=== PATIENT | female | born 2000 | race African-American/Black ===

== ENCOUNTER 2021-04-05 16:29 | Inpatient (IN) ==
[2021-04-05 17:49] LABS: ABS Lymphocytes 1.9 10^3/ul (1.0-4.8); ABS Monocytes 0.7 10^3/ul (0-0.8); ABS Neutrophils 5.7 10^3/ul (1.5-7.7); Eosinophil % 0.1 %; Hematocrit 42 % (35-47); Hemoglobin 14.5 g/dL (12.0-16.0); Lymphocyte % 22.5 %; Mean Corpuscular HGB Conc 35 g/dL (31-36); Mean Corpuscular Hemoglobin 30 pg (27-31); Mean Corpuscular Volume 86 fL (80-97); Mean Platelet Volume 7.4 fL (7.4-10.4); Nucleated Red Blood Cells % 0.1; Platelet Count 439 10^3/uL (150-450); Red Blood Count 4.85 10^6 /uL (3.70-4.87); Red Cell Distribution Width 13 % (10-15); White Blood Count 8.3 10^3/uL (3.5-10.8)
[2021-04-05 18:06] LABS: ALT 12 U/L (7-52); AST 20 U/L (13-39); Albumin/Globulin Ratio 1.5 (1-3); Alkaline Phosphatase 96 U/L (35-149); Anion Gap 11 mmol/L (2-11); Blood Urea Nitrogen 5 mg/dL (6-24); CO2 Carbon Dioxide 24 mmol/L (22-32); Calcium 9.9 mg/dL (8.6-10.3); Chloride 101 mmol/L (101-111); Globulin 3.4 g/dL (2-4); Glucose 90 mg/dL (70-100); Potassium 3.7 mmol/L (3.5-5.0); Sodium 136 mmol/L (135-145); Total Protein 8.4 g/dL (6.4-8.9); eGFR CKD-EPI 129.5 (>60)
[2021-04-05 18:12] LABS: HCG Pregnancy < 0.60 mIU/mL
[2021-04-05 18:15] LABS: Acetaminophen < 15 mcg/mL; Alcohol, S < 13 mg/dL (<13); Salicylate < 2.50 mg/dL (<30)
[2021-04-05 18:30] LABS: TSH Ultra Thyroid Stim Horm 0.59 mcIU/mL (0.34-5.60)
[2021-04-05 19:28] LABS: Urine Appearance Clear; Urine Bilirubin Negative (Negative); Urine Blood Negative (Negative); Urine Color Straw; Urine Glucose Negative (Negative); Urine Ketones 1+ (Negative); Urine Nitrite Negative (Negative); Urine Protein Negative (Negative); Urine Specific Gravity 1.005 (1.002-1.030); Urine Urobilinogen Negative (Negative)
[2021-04-05 21:12] LABS: Urine Benzodiazepine Screen None Detected (None Detect); Urine Cannabinoids Screen None Detected (None Detect); Urine Opiates Screen None Detected (None Detect)
[2021-04-06] MEDS: Vitamin THERAPEUTIC TAB PO SCH (09:28)
[2021-04-06] MEDS ORDERED: diPHENhydraMINE 25 mg TAB ONE (12:50)
[2021-04-07] MEDS: Vitamin THERAPEUTIC TAB PO SCH (08:07)
[2021-04-08] MEDS: Vitamin THERAPEUTIC TAB PO SCH (08:00)
[2021-04-08] MEDS ORDERED: Benzocaine/Menthol LOZ ONE (22:59)
[2021-04-09] MEDS: Vitamin THERAPEUTIC TAB PO SCH (10:05)
[2021-04-09] MEDS: Al Hydrox/Mg Hydrox/Simet LIQ 30 ML UDC PO PRN (13:16)
[2021-04-09] MEDS: Benzocaine/Menthol LOZ PO PRN (20:13)
[2021-04-10] MEDS: Vitamin THERAPEUTIC TAB PO SCH (07:11)
[2021-04-10] MEDS: Benzocaine/Menthol LOZ PO PRN (09:53)
[2021-04-10] MEDS: Al Hydrox/Mg Hydrox/Simet LIQ 30 ML UDC PO PRN (20:01)
[2021-04-11] MEDS: Vitamin THERAPEUTIC TAB PO SCH (09:17)
[2021-04-11] MEDS: Al Hydrox/Mg Hydrox/Simet LIQ 30 ML UDC PO PRN (19:25)
[2021-04-12] MEDS: Vitamin THERAPEUTIC TAB PO SCH (09:47)
[2021-04-12] MEDS: Benzocaine/Menthol LOZ PO PRN (14:50)
[2021-04-13] MEDS: Vitamin THERAPEUTIC TAB PO SCH (10:03)
[2021-04-13 18:32] VITALS: BP 120/69
[2021-04-13] MEDS: Benzocaine/Menthol LOZ PO PRN (22:23)
[2021-04-14] MEDS ORDERED: Lithium Carbonate ER 450mg TAB PO SCH (09:00)
[2021-04-14] MEDS: Vitamin THERAPEUTIC TAB PO SCH (09:33)
== END 2021-04-14 13:30 | disposition home or self-care (01) | DRG 885 ==
LOC: ED 16:29 → BSU 04-06 01:20
PROVIDERS: ADMIT Psychiatry & Neurology Psychiatry; ATTEND Psychiatry & Neurology Psychiatry

== ENCOUNTER 2021-05-09 13:34 | Inpatient (IN) ==
[2021-05-09] MEDS ORDERED: Al Hydrox/Mg Hydrox/Simet LIQ 30 ML UDC PO PRN (22:00)
[2021-05-10] MEDS: Vitamin THERAPEUTIC TAB PO SCH ×2 (08:27→10:30)
[2021-05-11] MEDS: Vitamin THERAPEUTIC TAB PO SCH (10:03)
[2021-05-11] MEDS: Benzocaine/Menthol LOZ PO PRN (19:45)
[2021-05-12 07:40] LABS: HDL Cholesterol 40.9 mg/dL
[2021-05-12] MEDS: Vitamin THERAPEUTIC TAB PO SCH (15:25)
[2021-05-12] MEDS: CMCS:Lactase Enzyme (NF) 3,000 UNIT TAB PO PRN (17:24)
[2021-05-12] MEDS: Benzocaine/Menthol LOZ PO PRN (17:24)
[2021-05-13] MEDS: Albuterol HFA INHALER 8 gm MDI INH PRN ×2 (01:02→20:01)
[2021-05-13] MEDS: Benzocaine/Menthol LOZ PO PRN ×2 (09:33→14:56)
[2021-05-13] MEDS: Vitamin THERAPEUTIC TAB PO SCH (09:53)
[2021-05-13] MEDS: CMCS:Lactase Enzyme (NF) 3,000 UNIT TAB PO PRN (12:48)
[2021-05-14] MEDS: Benzocaine/Menthol LOZ PO PRN (08:51)
[2021-05-14] MEDS: Vitamin THERAPEUTIC TAB PO SCH (08:51)
[2021-05-15] MEDS: Benzocaine/Menthol LOZ PO PRN (09:14)
[2021-05-15] MEDS: Vitamin THERAPEUTIC TAB PO SCH (09:14)
[2021-05-16] MEDS: Vitamin THERAPEUTIC TAB PO SCH (09:07)
[2021-05-17] MEDS: Vitamin THERAPEUTIC TAB PO SCH (08:35)
[2021-05-18] MEDS: Vitamin THERAPEUTIC TAB PO SCH (09:22)
[2021-05-18 20:25] VITALS: BP 124/71
[2021-05-19] MEDS: Vitamin THERAPEUTIC TAB PO SCH (09:47)
== END 2021-05-19 17:03 | disposition home or self-care (01) | DRG 885 ==
LOC: ED 13:34 → BSU 21:35
PROVIDERS: ADMIT Psychiatry & Neurology Psychiatry; ATTEND Psychiatry & Neurology Psychiatry

== ENCOUNTER 2023-02-22 23:11 | Inpatient (IN) ==
[2023-02-23] MEDS ORDERED: Ondansetron 4 mg VIAL 2 MG/ML 2 ml VIAL IV ONE (01:04)
[2023-02-23 01:44] LABS: ABS Basophils 0.1 10^3/uL (0.0-0.1); ABS Lymphocytes 1.5 10^3/uL (1.0-4.8); ABS Monocytes 0.7 10^3/uL (0.0-0.9); ABS Neutrophils 14.7 10^3/uL (1.5-7.6); Hematocrit 38.3 % (35-45); Hemoglobin 12.9 g/dL (11.5-14.3); Lymphocyte % 8.8 %; Mean Corpuscular Hemoglobin 28.7 pg (27-33); Mean Corpuscular Hgb Conc 33.6 g/dL (31-36); Mean Corpuscular Volume 85.3 fL (80-97); Mean Platelet Volume 6.4 fL (7.5-11.2); Platelet Count 513 10^3/uL (150-450); Red Blood Count 4.49 10^6/uL (3.63-4.92); Red Cell Distribution Width 14.3 % (12-17)
[2023-02-23 02:12] LABS: Albumin 4.4 g/dL (3.2-5.2); Calcium 9.4 mg/dL (8.6-10.3); Potassium 3.9 mmol/L (3.5-5.0); Total Bilirubin 0.6 mg/dL (0.2-1.0)
[2023-02-23 02:18] LABS: C Reactive Protein 11.9 mg/L (<8.01); Creatinine, Serum 0.63 mg/dL (0.51-0.95); eGFR CKD-EPI 129.4 (>60)
[2023-02-23 02:37] LABS: Albumin/Globulin Ratio 1.4 (1-3); Globulin 3.1 g/dL (2-4); Total Protein 7.5 g/dL (6.4-8.9)
[2023-02-23] MEDS: Lactated Ringers 1000 ml BAG 1,000 ML IV SCH ×3 (06:26→21:07)
[2023-02-23 07:01] LABS: ABS Basophils 0.1 10^3/uL (0.0-0.1); ABS Lymphocytes 2.6 10^3/uL (1.0-4.8); ABS Monocytes 0.8 10^3/uL (0.0-0.9); ABS Neutrophils 14.3 10^3/uL (1.5-7.6); Eosinophil % 0.2 %; Hematocrit 34.6 % (35-45); Hemoglobin 11.8 g/dL (11.5-14.3); Lymphocyte % 14.6 %; Mean Corpuscular Hemoglobin 28.8 pg (27-33); Mean Corpuscular Hgb Conc 34.1 g/dL (31-36); Mean Corpuscular Volume 84.5 fL (80-97); Mean Platelet Volume 6.5 fL (7.5-11.2); Platelet Count 506 10^3/uL (150-450); Red Blood Count 4.09 10^6/uL (3.63-4.92); Red Cell Distribution Width 14.3 % (12-17); White Blood Count 17.8 10^3/uL (3.8-11.8)
[2023-02-23 07:26] LABS: Calcium 8.8 mg/dL (8.6-10.3); Creatinine, Serum 0.61 mg/dL (0.51-0.95); HDL Cholesterol 62.5 mg/dL; Phosphorus 4.6 mg/dL (2.5-5.0); eGFR CKD-EPI 130.4 (>60)
[2023-02-23] MEDS: HYDROmorphone 1 MG/1 ML SYRINGE IV PRN ×4 (07:36→21:02)
[2023-02-23] MEDS ORDERED: Lactated Ringers 1000 ml BAG 1,000 ML IV SCH (13:00)
[2023-02-23] MEDS: Lithium Carbonate ER 450mg TAB PO SCH (21:00)
[2023-02-23 21:50] LABS: Urine Appearance Clear; Urine Bilirubin Negative (Negative); Urine Blood 1+ (Negative); Urine Color Yellow; Urine Glucose Negative (Negative); Urine Ketones 2+ (Negative); Urine Nitrite Negative (Negative); Urine Protein Negative (Negative); Urine Specific Gravity 1.014 (1.002-1.030); Urine Urobilinogen Negative (Negative)
[2023-02-23 22:30] LABS: Urine Bacteria 1+ (Absent); Urine Red Blood Cell Trace(0-2/hpf) (Absent); Urine Squamous Epithelial Cell Present (Absent); Urine White Blood Cell Trace(0-5/hpf) (Absent)
[2023-02-23] MEDS: Ondansetron 4 mg VIAL 2 MG/ML 2 ml VIAL IV PRN (23:41)
[2023-02-24] MEDS: HYDROmorphone 1 MG/1 ML SYRINGE IV PRN ×3 (01:36→18:17)
[2023-02-24 06:12] LABS: ABS Basophils 0.1 10^3/uL (0.0-0.1); ABS Eosinophils 0.2 10^3/uL (0.0-0.5); ABS Lymphocytes 3.6 10^3/uL (1.0-4.8); ABS Monocytes 0.6 10^3/uL (0.0-0.9); ABS Nucleated RBC 0.01 10^3/ul; Eosinophil % 1.6 %; Hematocrit 32.5 % (35-45); Lymphocyte % 31.6 %; Mean Corpuscular Hgb Conc 33.8 g/dL (31-36); Mean Corpuscular Volume 85.7 fL (80-97); Mean Platelet Volume 6.1 fL (7.5-11.2); Nucleated Red Blood Cells % 0.1 %/100WBC (0.0-0.8); Platelet Count 450 10^3/uL (150-450); Red Blood Count 3.79 10^6/uL (3.63-4.92); Red Cell Distribution Width 14.3 % (12-17); White Blood Count 11.4 10^3/uL (3.8-11.8)
[2023-02-24 06:30] LABS: Calcium 8.9 mg/dL (8.6-10.3); Creatinine, Serum 0.58 mg/dL (0.51-0.95); Magnesium 1.8 mg/dL (1.9-2.7); Potassium 4.2 mmol/L (3.5-5.0)
[2023-02-24] MEDS ORDERED: Magnesium Sulfate IV 1GM/100ML 1 GM/100 ML BAG IV ONE (08:00)
[2023-02-24] MEDS: Lactated Ringers 1000 ml BAG 1,000 ML IV SCH ×2 (08:23→21:22)
[2023-02-24] MEDS: Ondansetron 4 mg VIAL 2 MG/ML 2 ml VIAL IV PRN ×2 (08:27→18:17)
[2023-02-24] MEDS: HYDROmorphone 0.5 MG/0.5 ML SYRINGE IV PRN (08:28)
[2023-02-24] MEDS ORDERED: Influenza vaccine *QUAD* *2023-24* 0.5 ML SYRINGE IM ONE (09:00)
[2023-02-24] MEDS ORDERED: Pneumococcal Vac 23-Polyvalent IM ONE (09:00)
[2023-02-24] MEDS ORDERED: Prochlorperazine 5 mg/ml 2 ml VIAL (10 mg) ONE (13:01)
[2023-02-24] MEDS: Prochlorperazine 5 mg/ml 2 ml VIAL (10 mg) IV PRN (13:03)
[2023-02-24] MEDS: Lithium Carbonate ER 450mg TAB PO SCH (21:19)
[2023-02-25] MEDS: Ondansetron 4 mg VIAL 2 MG/ML 2 ml VIAL IV PRN (02:58)
[2023-02-25] MEDS: HYDROmorphone 1 MG/1 ML SYRINGE IV PRN (02:58)
[2023-02-25 06:25] LABS: ABS Basophils 0.1 10^3/uL (0.0-0.1); ABS Eosinophils 0.4 10^3/uL (0.0-0.5); ABS Lymphocytes 3.5 10^3/uL (1.0-4.8); ABS Monocytes 0.7 10^3/uL (0.0-0.9); ABS Neutrophils 6.6 10^3/uL (1.5-7.6); ABS Nucleated RBC 0.01 10^3/ul; Eosinophil % 3.3 %; Hemoglobin 10.9 g/dL (11.5-14.3); Lymphocyte % 30.7 %; Mean Corpuscular Hemoglobin 29.1 pg (27-33); Mean Corpuscular Volume 85.5 fL (80-97); Mean Platelet Volume 6.3 fL (7.5-11.2); Platelet Count 428 10^3/uL (150-450); Red Blood Count 3.74 10^6/uL (3.63-4.92); White Blood Count 11.3 10^3/uL (3.8-11.8)
[2023-02-25 06:43] LABS: Calcium 8.3 mg/dL (8.6-10.3); Creatinine, Serum 0.52 mg/dL (0.51-0.95); Magnesium 1.8 mg/dL (1.9-2.7); Potassium 3.8 mmol/L (3.5-5.0); eGFR CKD-EPI 135.5 (>60)
[2023-02-25] MEDS: Prochlorperazine 5 mg/ml 2 ml VIAL (10 mg) IV PRN (08:00)
[2023-02-25] MEDS: HYDROmorphone 0.5 MG/0.5 ML SYRINGE IV PRN (08:00)
[2023-02-25] MEDS: Lactated Ringers 1000 ml BAG 1,000 ML IV SCH (10:55)
[2023-02-25 14:21] VITALS: BP 113/72
== END 2023-02-25 17:30 | disposition home or self-care (01) | DRG 393 ==
LOC: ED 23:11 → EDHOLD 23:11 → SUATTDRO 02-23 05:03 → SSU 02-23 11:44
PROVIDERS: ADMIT Internal Medicine; ATTEND Student in an Organized Health Care Education/Training Program